=== PATIENT | male | born 1955 | race Caucasian/White ===

== ENCOUNTER → 2023-05-23 | Outpatient (CLI) | payer MEDICARE, BC | END | disposition home or self-care (01) | LOC: RAD 11:29 | PROVIDERS: ATTEND Nurse Practitioner Family | DX: M51.34 Other intervertebral disc degeneration, thoracic region (principal); M47.814 Spondylosis without myelopathy or radiculopathy, thoracic region; R05.9 Cough, unspecified | CPT/HCPCS: 71046 ==

== ENCOUNTER 2023-05-30 08:59 | Observation (INO) | payer MEDICARE, BC ==
[2023-05-30] VITALS (8 sets, daily range): BP systolic 126–174; BP diastolic 77–114; PULSE 70–89; RESP 16–18; TEMP 98–98.9; O2SAT 0–96
[~2023-05-30] VITALS: Ht 190.5 cm; Wt 115.7 kg
[2023-05-30 09:31] LABS: BASOPHIL % 0.3 % (0.0-0.2); EOSINOPHIL # 0.2 10^3/uL (0.0-0.2); EOSINOPHIL % 2.1 % (0.0-5.0); HEMATOCRIT(ML) 44.8 % (37.0-53.0); LYMPHOCYTES # 2.54 10^3/uL1 (1.0-4.8); LYMPHOCYTES % 24.3 % (24.0-44.0); MEAN CORP HGB 32.5 pg (26-34); MEAN CORP HGB CONCENTRATION 33.5 g/dL (33-36.5); MEAN CORP VOLUME 97.2 fL (78-100); MONOCYTES # 1.1 10^3/uL (0.3-0.8); MONOCYTES % 10.8 % (5.0-12.0); NEUTROPHIL # 6.5 10^3/uL (1.8-7.7); NEUTROPHILS % 62.1 % (41.0-85.0); PLATELET COUNT 349 10^3/uL (150-400); RED BLOOD CELL 4.61 10^6/uL (4.50-5.90); RED CELL DISTRIBUTION WIDTH 14.8 % (11.5-14.5); WHITE BLOOD CELL 10.5 10^3/uL (4.5-11.0)
[2023-05-30 09:41] LABS: +ADD MANUAL DIFF(NO CHRG) NO
[2023-05-30 09:45] LABS: PROTHROMBIN PROTIME 10.1 SEC (9.7-11.6)
[2023-05-30 09:50] LABS: ALBUMIN(ML) 3.2 g/dL (3.4-5.0); ALBUMIN/GLOBULIN RATIO 0.78; ANION GAP 8.2; BUN/CREATININE RATIO 14.76 (10.0-20.0); CALCIUM 9.4 mg/dL (8.4-10.5); CARBON DIOXIDE 33.6 mmol/L (20.0-32); CREATININE SERUM 1.49 mg/dL (0.59-1.40); EST GFR, NON-AA 46.9 (>/=60); POTASSIUM 3.8 mmol/L (3.6-5.2)
[2023-05-30] MEDS ORDERED: ASPIRIN PO STA (09:51)
[2023-05-30] MEDS ORDERED: PLAVIX PO STA (09:51)
[2023-05-30] MEDS ORDERED: ASPIRIN ONE (11:02)
[2023-05-30] MEDS ORDERED: PLAVIX ONE (11:03)
[2023-05-30 12:55] LABS: APPEARANCE,URINE CLEAR; BILIRUBIN,URINE NEGATIVE (NEGATIVE); LEUKOCYTE ESTERASE ,URINE NEGATIVE (NEGATIVE); NITRATE,URINE NEGATIVE (NEGATIVE); UA COLOR YELLOW; UROBILINOGEN,URINE 0.2 E.U./dL (0.2)
[2023-05-31 03:51] VITALS: BP 136/98; PULSE 76; RESP 18; TEMP 98.2; O2SAT 90
[2023-05-31 05:06] LABS: BASOPHIL % 0.3 % (0.0-0.2); EOSINOPHIL # 0.3 10^3/uL (0.0-0.2); EOSINOPHIL % 2.7 % (0.0-5.0); HEMATOCRIT(ML) 42.9 % (37.0-53.0); HEMOGLOBIN 14.5 g/dL (13.9-16.3); LYMPHOCYTES # 3.09 10^3/uL1 (1.0-4.8); LYMPHOCYTES % 31.1 % (24.0-44.0); MEAN CORP HGB 32.4 pg (26-34); MEAN CORP HGB CONCENTRATION 33.8 g/dL (33-36.5); MONOCYTES % 10.1 % (5.0-12.0); NEUTROPHIL # 5.5 10^3/uL (1.8-7.7); NEUTROPHILS % 55.6 % (41.0-85.0); PLATELET COUNT 374 10^3/uL (150-400); RED BLOOD CELL 4.47 10^6/uL (4.50-5.90); RED CELL DISTRIBUTION WIDTH 14.7 % (11.5-14.5); WHITE BLOOD CELL 9.9 10^3/uL (4.5-11.0)
[2023-05-31 05:19] LABS: ALBUMIN/GLOBULIN RATIO 0.697; ANION GAP 9.1; BUN/CREATININE RATIO 15.62 (10.0-20.0); CALCIUM 9.3 mg/dL (8.4-10.5); CREATININE SERUM 1.28 mg/dL (0.59-1.40); EST GFR, NON-AA 55.9 (>/=60); POTASSIUM 4.1 mmol/L (3.6-5.2)
[2023-05-31 05:29] LABS: +ADD MANUAL DIFF(NO CHRG) NO
[2023-05-31 07:00] VITALS: BP 154/98; PULSE 73; RESP 18; TEMP 98.1; O2SAT 94
[2023-05-31 11:24] VITALS: BP 100/65; PULSE 99; RESP 18; TEMP 98.1; O2SAT 96
[2023-05-31 12:02] VITALS: BP 100/65; PULSE 99; RESP 18; TEMP 98.1; O2SAT 96
== END 2023-05-31 11:50 | disposition home or self-care (01) ==
LOC: ER 08:59 → MS 11:31
PROVIDERS: ADMIT Surgery; ATTEND Surgery
DX: E85.4 Organ-limited amyloidosis (principal); I68.0 Cerebral amyloid angiopathy; I48.91 Unspecified atrial fibrillation; I63.9 Cerebral infarction, unspecified; R53.1 Weakness; R20.0 Anesthesia of skin; R20.2 Paresthesia of skin; I69.322 Dysarthria following cerebral infarction; Z86.718 Personal history of other venous thrombosis and embolism
CPT/HCPCS: 99285; 92523; 70551; 71045; 70450; 70498; 70496; 81003; 80053 ×2; 85025 ×2; 36415 ×2; 84484; 82550; 85610; 85730; 93005; 97166; 97161; G0378 ×3; J8499; Q9965